=== PATIENT | female | born 1970 | race Two or more races ===

== ENCOUNTER → 2021-06-25 07:27 | Outpatient (CLI) | payer OTHER | END | disposition home or self-care (01) | LOC: NUCLEAR 07:00 | PROVIDERS: ATTEND Internal Medicine Sports Medicine | DX: E05.90 Thyrotoxicosis, unspecified without thyrotoxic crisis or storm (principal) ==

== ENCOUNTER 2021-06-26 07:43 | Outpatient (CLI) | payer OTHER | END 2021-06-26 07:45 | disposition home or self-care (01) | LOC: NUCLEAR 07:43 | PROVIDERS: ATTEND Internal Medicine Sports Medicine | DX: E05.90 Thyrotoxicosis, unspecified without thyrotoxic crisis or storm (principal) ==

== ENCOUNTER 2021-10-10 13:04 | Outpatient (CLI) | payer OTHER | END 2021-10-10 13:10 | disposition home or self-care (01) | LOC: NUCLEAR 13:04 | PROVIDERS: ATTEND Internal Medicine Sports Medicine | DX: E05.90 Thyrotoxicosis, unspecified without thyrotoxic crisis or storm (principal) | CPT/HCPCS: 79005; A9517 ==

== ENCOUNTER 2022-09-28 07:27 | Outpatient (CLI) | payer OTHER | END 2022-09-28 07:35 | disposition home or self-care (01) | LOC: NUCLEAR 07:27 | PROVIDERS: ATTEND Internal Medicine | DX: I10 Essential (primary) hypertension (principal); R07.9 Chest pain, unspecified ==